=== PATIENT | female | born 1960 | race Caucasian/White ===

== ENCOUNTER 2019-12-19 14:49 | Emergency (ER) | payer MEDICARE ==
[2019-12-19 14:53] VITALS: BP 100/56; Wt 59.1 kg
[2019-12-19] MEDS ORDERED: CLARITIN 10 MG10 MG PO (15:00)
[2019-12-19] MEDS ORDERED: BENZTROPINE MESY1 MG PO (15:00)
[2019-12-19] MEDS ORDERED: ASPIRIN81 MG PO (15:00)
[2019-12-19] MEDS ORDERED: LEVOFLOXACIN500 MG PO (15:01)
[2019-12-19] MEDS ORDERED: DEPAKOTE125 MG PO (15:01)
[2019-12-19] MEDS ORDERED: PROZAC20 MG PO (15:02)
[2019-12-19] MEDS ORDERED: RISPERDAL1 MG PO (15:02)
[2019-12-19] MEDS ORDERED: PEPCID40 MG PO (15:02)
[2019-12-19] MEDS ORDERED: REMERON15 MG PO (15:02)
[2019-12-19] MEDS ORDERED: TOZAL SOFTGEL1 EACH PO (15:03)
[2019-12-19] MEDS ORDERED: SENNA LAXATIVE8.6 MG PO (15:03)
[2019-12-19 15:54] LABS: UDS - AMPHET NEGATIVE QUAL (NEGATIVE); UDS - BARB NEGATIVE QUAL (NEGATIVE); UDS - BENZO NEGATIVE QUAL (NEGATIVE); UDS - COCAINE NEGATIVE QUAL (NEGATIVE); UDS - OPIATE NEGATIVE QUAL (NEGATIVE); UDS - PCP NEGATIVE QUAL (NEGATIVE); UDS - THC NEGATIVE QUAL (NEGATIVE)
[2019-12-19 15:59] LABS: BILIRUBIN NEGATIVE (NEGATIVE); GLUCOSE NEGATIVE (NEGATIVE); KETONE NEGATIVE (NEGATIVE); NITRITE NEGATIVE (NEGATIVE); UROBILINOGEN NORMAL (NORMAL)
[2019-12-19 17:09] LABS: HEMATOCRIT 43.3 % (36.0-48.0); HEMOGLOBIN 13.7 g/dL (12-16); LYMPHOCYTES 31.5 % (15-50); MCH 28.6 pg (26.0-34.0); MCHC 31.6 g/dL (31.0-37.0); MCV 90.4 fL (80.0-100.0); MEAN PLATELET VOLUME 9.4 fL (7.4-10.4); NEUTROPHILS 59.9 % (40-80); PLATELET COUNT 264 10x3/uL (130-400); RBC 4.79 10x6/uL (4.00-5.40); RDW 12.9 % (11.5-14.5); WBC 8.6 10x3/uL (4.8-10.8)
[2019-12-19 17:21] LABS: CALC OSMOLALITY 278 mosm/kg (275-300); CALCIUM 8.9 mg/dL (8.5-10.1); CARBON DIOXIDE 32.7 mmol/L (21.0-32.0); CHLORIDE - SERUM 102 mmol/L (98-107); CREATININE - SERUM 0.7 mg/dL (0.6-1.3); GLUCOSE 77 mg/dL (74-106); POTASSIUM - SERUM 3.9 mmol/L (3.5-5.1); SODIUM 139 mmol/L (136-145); UREA NITROGEN 19 mg/dL (7-18); eGFR NON AFRICAN AMERICAN 90 mL/min (90-120)
[2019-12-19 17:27] LABS: ALBUMIN 3.1 g/dL (3.4-5.0); ALKALINE PHOSPHATASE 113 U/L (30-120); ALT (SGPT) 22 U/L (10-68); BILIRUBIN - TOTAL 0.23 mg/dL (0.2-1.3); MAGNESIUM - SERUM 2.1 mg/dL (1.8-2.4); PROTEIN - SERUM 7.4 g/dL (6.4-8.2); VALPROIC ACID (DEPAKOTE) 37.8 ug/mL (50.0-100.0)
== END 2019-12-19 19:37 ==
LOC: D.ER 14:49
PROVIDERS: Family Medicine
DX: F03.91 Unspecified dementia, unspecified severity, with behavioral disturbance (principal)